=== PATIENT | male | born 1970 | race Hispanic/Latino ===

== ENCOUNTER 2016-11-16 10:44 | Observation (INO) | payer BC ==
--- NOTE | 2016-11-16 11:29 | ED PDOC ---
HPI: General Adult Time Seen by Provider: 11/16/16 11:04 Chief Complaint (Nursing): Upper Extremity Problem/Injury History Per: Patient Additional Complaint(s): Pt. states he woke up this morning with L sided neck pain. Reports that he's been having neck problems for some time now. Pt. states he put icy/hot over the area which resolved it so he went back to sleep. Pt. then states he woke up without any neck pain but did have b/l chest pain. Pt. states pain is worse with deep inspiration and is worse when he has arms out in front of him but resolve when they are over his head. Also states pain is worse when attempting to touch the chest. Denies SOB, palpitations, fever, trauma, N/V. Past Medical History Reviewed: Historical Data, Nursing Documentation, Vital Signs Vital Signs: Last Vital Signs Temp 99 F 11/16/16 13:00 Pulse 105 H 11/16/16 15:20 Resp 20 11/16/16 15:20 BP 136/79 11/16/16 14:00 Pulse Ox 98 11/16/16 15:20 - Medical History PMH: Anxiety - Surgical History Surgical History: No Surg Hx - Family History Family History: Denies: [place], CAD - Social History Drugs: Denies - Home Medications Home Medications: Ambulatory Orders Medication Instructions Recorded ALPRAZolam [Xanax] 0.25 mg PO DAILY PRN 11/16/16 Cholecalciferol (Vitamin D3) 2,000 unit PO DAILY 11/16/16 [Vitamin D3] Multivitamin [Multi-Vitamin Daily] 1 tab PO DAILY 11/16/16 Sertraline [Zoloft] 200 mg PO DAILY 11/16/16 - Allergies Allergies/Adverse Reactions: Allergies Allergy/AdvReac Type Severity Reaction Status Date / Time No Known Allergies Allergy Verified 11/16/16 10:51 Review of Systems ROS Statement: Except As Marked, All Systems Reviewed And Found Negative Cardiovascular: Positive for: Chest Pain Physical Exam - Reviewed Nursing Documentation Reviewed: Yes Vital Signs Reviewed: Yes - Physical Exam Appears: Positive for: Well, Non-toxic, No Acute Distress Head Exam: Positive for: ATRAUMATIC, NORMAL INSPECTION, NORMOCEPHALIC Skin: Positive for: Normal Color, Warm. Negative for: Rash Eye Exam: Positive for: EOMI, Normal appearance, PERRL ENT: Positive for: Normal ENT Inspection Neck: Positive for: Normal, Painless ROM Cardiovascular/Chest: Positive for: Regular Rate, Rhythm Respiratory: Positive for: CNT, Normal Breath Sounds Gastrointestinal/Abdominal: Positive for: Normal Exam, Bowel Sounds, Soft. Negative for: Tenderness Back: Positive for: Normal Inspection Extremity: Positive for: Normal ROM. Negative for: Calf Tenderness (b/l) Neurologic/Psych: Positive for: Alert, Oriented. Negative for: Aphasia, Facial Droop - Laboratory Results Result Diagrams: 11/16/16 11:50 11/16/16 11:50 - ECG O2 Sat by Pulse Oximetry: 98 - Radiology X-Ray: Interpreted by Me (CXR) X-Ray Interpretation: No Acute Disease - Progress ED Course And Treament: Labs ordered. CXR ordered. ASA 324mg PO chew ordered. On re-evaluation, pt. in no apparent distress. Reports no relief in pain. WBC 18.1. Denies fever, abdominal pain. Morphine 4mg IV, zofran 4mg IV given. Case d/w Dr. Hawley and decision was made to place pt. in 23 hr observation. case d/w Dr. Antony and arrangements made for 23 hr observation. Cardiology consult ordered. Disposition - Clinical Impression Clinical Impression: Chest pain, Leukocytosis - Patient ED Disposition Is Patient to be Admitted: Yes - Disposition Disposition Time: 13:20 Condition: FAIR Wells Criteria for PE - Wells Criteria for Pulmonary Embolism Clinical Signs and Symptoms of DVT: No P.E is #1 Diagnosis, or Equally Likely: No Heart Rate >100: No Immobilization at least 3 days;Surgery previous 4 weeks: No Previous, objectively diagnosed PE or DVT: No Hemoptysis: No Malignancy w/treatment within 6 months, or palliative: No Total Score: 0 JON Risk Score for UA/NSTEMI - JON Risk Score Age > 64: NO 3 or more CAD Risk Factors: NO Known CAD (Stenosis greater than 50%): NO Aspirin use in past 7 days: NO Severe Angina: NO EKG ST changes greater than 0.5mm: NO Positive Cardiac Marker: NO JON Score: 0 % risk at 14 days of: all cause mortality, new or recurrent [place], or severe recurrent ischemia requiring urgen revascularization: 5%
[2016-11-16 12:00] LABS: BASO # 0.1 K/uL (0.0-0.2); BASO % 0.4 % (0.0-2.0); EOS # 0.1 K/uL (0.0-0.7); EOS % 0.5 % (0.0-4.0); HEMOGLOBIN 15.1 g/dL (12.0-18.0); LYMPH # 1.3 K/uL (1.0-4.3); LYMPH % 7.4 % (20.0-40.0); MEAN CELL VOLUME 86.3 fl (80.0-94.0); MEAN CORPUSCULAR HEMOGLOBIN 29.1 pg (27.0-31.0); MEAN CORPUSCULAR HGB CONC 33.7 g/dL (33.0-37.0); MEAN PLATELET VOLUME 8.2 fl (7.2-11.7); MONO # 0.7 K/uL (0.0-0.8); NEUT # 15.9 K/uL (1.8-7.0); NEUT % 87.7 % (50.0-75.0); PLATELET COUNT 379 K/uL (130-400); RBC 5.21 Mil/uL (4.40-5.90); RED CELL DISTRIBUTION WIDTH 13.8 % (11.5-14.5); WHITE BLOOD COUNT 18.1 K/uL (4.8-10.8)
--- NOTE | 2016-11-16 12:09 | RAD ---
HISTORY: chest pain COMPARISON: 06/13/2014 FINDINGS: LUNGS: No active pulmonary disease. PLEURA: No significant pleural effusion identified, no pneumothorax apparent. CARDIOVASCULAR: Normal. OSSEOUS STRUCTURES: No significant abnormalities. VISUALIZED UPPER ABDOMEN: Normal. OTHER FINDINGS: None. IMPRESSION: No active disease.
[2016-11-16 12:25] LABS: ALB/GLOB RATIO 1.3 (1.0-2.1); ALBUMIN 4.5 g/dL (3.5-5.0); ALT/SGPT 76 U/L (21-72); AST/SGOT 46 U/L (17-59); BLOOD UREA NITROGEN 17 mg/dl (9-20); CALCIUM 8.9 mg/dL (8.4-10.2); GFR AFRICAN-AMERICAN > 60; GFR NON-AFRICAN AMERICAN > 60
[2016-11-16 12:29] LABS: BANDS 3 % (0-2); EOSINOPHIL 2 % (0-7); LYMPHOCYTE 6 % (20-50); MONOCYTE 4 % (0-10); NEUTROPHIL 85 % (42-75); PLATELET ESTIMATE NORMAL (NORMAL); TOTAL CELLS COUNTED 100
[2016-11-16 13:34] LABS: BARBITURATES, UR NEGATIVE (NEGATIVE); BENZODIAZEPINES, UR POSITIVE (NEGATIVE); OPIATES, UR NEGATIVE (NEGATIVE); PHENCYCLIDINE, UR NEGATIVE (NEGATIVE)
--- NOTE | 2016-11-16 15:24 | CARD ---
APPROVED REPORT EKG Measurement Heart [id number] <Conclusion> Normal sinus rhythm Minimal voltage criteria for LVH, may be normal variant Nonspecific T wave abnormality Prolonged QT Abnormal ECG
[2016-11-17 04:38] VITALS: TEMP 98
[2016-11-17 06:54] LABS: MEAN CELL VOLUME 87.9 fl (80.0-94.0); MEAN CORPUSCULAR HEMOGLOBIN 29.5 pg (27.0-31.0); MEAN CORPUSCULAR HGB CONC 33.6 g/dL (33.0-37.0); RBC 5.08 Mil/uL (4.40-5.90)
[2016-11-17 07:10] LABS: BLOOD UREA NITROGEN 17 mg/dl (9-20); CALCIUM 8.8 mg/dL (8.4-10.2); GFR AFRICAN-AMERICAN > 60; GFR NON-AFRICAN AMERICAN > 60; HDL CHOLESTEROL 38 MG/DL (30-70)
[2016-11-17 07:20] LABS: LDL CHOLESTEROL 149 mg/dL (0-129)
[2016-11-17 08:16] VITALS: RESP 18
--- NOTE | 2016-11-17 08:34 | CP.PCM.CON ---
History of Present Illness - History of Present Illness History of Present Illness: This 46-year-old man came to the emergency room after he developed chest pain which occurred following severe neck pain for which she sprayed his neck with a pain reliever. This was followed by intense discomfort in upper chest and left arm. The patient reports that there have not been any prior episodes of chest pain. By his own account he is extremely sedentary and has gained more than 50 pounds over the last 2-3 years and admits to eating salty food. He has been taking medications for anxiety and depression. He denies prior history of hypertension or diabetes. He used to be a smoker until 8-10 years back when he quit smoking. There is no family history of diabetes or vascular disease. The patient has never experienced any chest discomfort in the past related to physical activities. Physical examination shows a young obese man who is quite pain-free at this point. He is able to live virtually flat and breathe comfortably at Da breaths per minute. His heart rate was 74 bpm regular and his blood pressure was 160/80 mmHg. His jugular venous pressure was not elevated there was no edema over his lower extremities. His pedal pulses were well felt. There were no carotid bruits. His extremities were warm, his nailbeds were pink. There was no central or peripheral cyanosis. His apex was not palpable the first and second heart sounds are normal there was no murmur or gallop there were no rales. His abdomen was soft liver and spleen are not palpable his electrocardiogram in the emergency room showed sinus rhythm with left ventricular hypertrophy. His initial troponin on arrival in the emergency room was within normal limits a second set of troponin estimates are still awaited. His BUN/creatinine were 17 and 1 mg percent respectively his triglycerides were 180 mg percent and his LDL cholesterol was 149 mg percent with HDL cholesterol 38 mg percent. IMPRESSION: Atypical chest pain with no evidence of acute coronary syndrome. Chronic exogenous obesity with elevated blood pressure readings. Dyslipidemia. If the second set of troponin levels are also normal the patient may be allowed to return home to be followed by his primary care physician. I have instructed him to see his primary care physician to confirm that his blood pressure readings are consistently high and then initiate management of hypertension. A sedentary lifestyle needs to be addressed and the patient understands this. Past Patient History - Past Medical History & Family History Past Medical History?: Yes - Past Social History Drugs: Denies - CARDIAC Hx Cardiac Disorders: No - PULMONARY Hx Respiratory Disorders: No Hx Sleep Apnea: Yes - NEUROLOGICAL Hx Neurological Disorder: No - HEENT Hx HEENT Problems: No - RENAL Hx Chronic Kidney Disease: No - ENDOCRINE/METABOLIC Hx Endocrine Disorders: No - HEMATOLOGICAL/ONCOLOGICAL Hx Blood Disorders: No - INTEGUMENTARY Hx Dermatological Problems: No - MUSCULOSKELETAL/RHEUMATOLOGICAL Hx Falls: No - GENITOURINARY/GYNECOLOGICAL Hx Genitourinary Disorders: No - PSYCHIATRIC Hx Anxiety: Yes - SURGICAL HISTORY Hx Surgeries: No - ANESTHESIA Hx Anesthesia: No Hx Anesthesia Reactions: No Hx Malignant Hyperthermia: No Has any member of the family had a problem w/ anesthesia?: No Meds Allergies/Adverse Reactions: Allergies Allergy/AdvReac Type Severity Reaction Status Date / Time No Known Allergies Allergy Verified 11/16/16 10:51 - Medications Medications: Current Medications Alprazolam (Xanax) 0.25 mg PO DAILY PRN PRN Reason: Anxiety Stop: 11/23/16 15:11 Aspirin (Aspirin Chewable) 81 mg PO DAILY [facility] Atorvastatin Calcium (Lipitor) 10 mg PO DAILY [facility] Cholecalciferol (Vitamin D) 2,000 iu PO DAILY [facility] Ibuprofen (Motrin Tab) 400 mg PO Q8 PRN PRN Reason: pain Last Admin: 11/17/16 06:40 Dose: 400 mg Multivitamins/Minerals (Therapeutic-M Tab) 1 tab PO DAILY [facility] Sertraline HCl (Zoloft) 200 mg PO DAILY [facility] Last Admin: 11/16/16 16:30 Dose: 200 mg Results - Vital Signs Recent Vital Signs: Last Vital Signs Temp 98 F 11/17/16 08:00 Pulse 90 11/17/16 08:00 Resp 18 11/17/16 08:00 BP 155/97 H 11/17/16 08:00 Pulse Ox 95 11/17/16 08:00 - Labs Result Diagrams: 11/17/16 05:30 11/17/16 05:30 Labs: Laboratory Results - last 24 hr 11/17/16 11/17/16 05:30 05:30 WBC 13.0 H RBC 5.08 Hgb 15.0 Hct 44.7 MCV 87.9 MCH 29.5 MCHC 33.6 RDW 14.0 Plt Count 389 Sodium 141 Potassium 3.8 Chloride 100 Carbon Dioxide 30 Anion Gap 15 BUN 17 Creatinine 1.0 Est GFR ( Amer) > 60 Est GFR (Non-Af Amer) > 60 Random Glucose 106 Calcium 8.8 Triglycerides 183 H Cholesterol 234 H LDL Cholesterol Direct 149 H HDL Cholesterol 38
[2016-11-17] MEDS ORDERED: Multivitamin With Minerals Tab PO SCH (09:00)
[2016-11-17 12:25] VITALS: BP 132/83; PULSE 94; O2SAT 96
--- NOTE | 2016-11-17 12:27 | CP.PCM.HP ---
History of Present Illness - History of Present Illness History of Present Illness: CC: Chest pain. 46 y/o M, came to ER [facility], [place] to be evaluated for chest pain b/l, onset AM DOA, with no relief. Pt c/o of intermittent CP b/l, of moderate intensity 7:10, worsening when attempt to touch his chest and with deep inspiration. Also c/o of R neck pain today prior to new onset of chest pain, alleviated when applied Icy-hot pads. Aggravated factor: Position changes. Pt denied: Fever, chills, n/v/d, abdominal pain, SOB, CP, palpitations, trauma , Hx of DM or HTN. PMHx: Anxiety, Depression, Dyslipidemia, Sleep Apnea. Echo: Poor Echo window, LV is borderline dilated, Normal LV wall thickened, systolic funtion moderately impaired. CXR: No active disease. EKG: Normal sinus rhythm, minimal voltage criteria for LVH. Present on Admission - Present on Admission Any Indicators Present on Admission: No Review of Systems - Review of Systems Systems not reviewed;Unavailable: Other (negative.) - Constitutional Constitutional: Other (negative) - EENT Eyes: Other (negative) Ears: Other (negative) Nose/Mouth/Throat: Other (negative) - Cardiovascular Cardiovascular: Chest Pain - Respiratory Respiratory: Other (negative) - Gastrointestinal Gastrointestinal: Other (negative) - Genitourinary Genitourinary: Other (negative) - Reproductive: Male Reproductive:Male: Other (negative) - Musculoskeletal Musculoskeletal: Neck Pain - Integumentary Integumentary: Other (negative) - Neurological Neurological: Other (negative) - Psychiatric Psychiatric: Anxiety, Depression - Endocrine Endocrine: Other (negative) - Hematologic/Lymphatic Hematologic: Other (negative) Past Patient History - Past Medical History & Family History Past Medical History?: Yes Pertinent Family History: Unknown - Past Social History Smoking Status: Former Smoker Alcohol: None Drugs: Denies Home Situation {Lives}: With Family - CARDIAC Hx Cardiac Disorders: No - PULMONARY Hx Respiratory Disorders: Yes Hx Sleep Apnea: Yes - NEUROLOGICAL Hx Neurological Disorder: No - HEENT Hx HEENT Problems: No - RENAL Hx Chronic Kidney Disease: No - ENDOCRINE/METABOLIC Hx Endocrine Disorders: No - HEMATOLOGICAL/ONCOLOGICAL Hx Blood Disorders: No - INTEGUMENTARY Hx Dermatological Problems: No - MUSCULOSKELETAL/RHEUMATOLOGICAL Hx Musculoskeletal Disorders: No Hx Falls: No - GASTROINTESTINAL Hx Gastrointestinal Disorders: No - GENITOURINARY/GYNECOLOGICAL Hx Genitourinary Disorders: No - PSYCHIATRIC Hx Psychophysiologic Disorder: Yes Hx Anxiety: Yes Hx Depression: Yes - SURGICAL HISTORY Hx Surgeries: No - ANESTHESIA Hx Anesthesia: No Hx Anesthesia Reactions: No Hx Malignant Hyperthermia: No Has any member of the family had a problem w/ anesthesia?: No Meds Home Medications: Home Medication List Medication Instructions Recorded Confirmed Type Aspirin [Aspirin Chewable] 81 mg PO DAILY #30 11/17/16 Rx Atorvastatin [Lipitor] 10 mg PO DAILY #30 tab 11/17/16 Rx Allergies/Adverse Reactions: Allergies Allergy/AdvReac Type Severity Reaction Status Date / Time No Known Allergies Allergy Verified 11/16/16 10:51 Physical Exam - Constitutional Appears: No Acute Distress - Head Exam Head Exam: NORMAL INSPECTION - Eye Exam Eye Exam: PERRL - ENT Exam ENT Exam: Normal Oropharynx - Neck Exam Neck exam: Positive for: Normal Inspection - Respiratory Exam Respiratory Exam: NORMAL BREATHING PATTERN - Cardiovascular Exam Cardiovascular Exam: REGULAR RHYTHM - GI/Abdominal Exam GI & Abdominal Exam: Normal Bowel Sounds, Soft - Extremities Exam Extremities exam: Positive for: normal inspection - Back Exam Back exam: NORMAL INSPECTION - Neurological Exam Neurological exam: Alert, Oriented x3 Additional comments: No motor sensory deficit. - Psychiatric Exam Psychiatric exam: Anxious, Depressed - Skin Skin Exam: Warm Results - Vital Signs Recent Vital Signs: Last Vital Signs Temp 98 F 11/17/16 12:00 Pulse 94 H 11/17/16 12:00 Resp 18 11/17/16 12:00 BP 132/83 11/17/16 12:00 Pulse Ox 96 11/17/16 12:00 cristiano Mccollum - Labs Result Diagrams: 11/17/16 05:30 11/17/16 05:30 Labs: Laboratory Results - last 24 hr 11/17/16 11/17/16 05:30 05:30 WBC 13.0 H RBC 5.08 Hgb 15.0 Hct 44.7 MCV 87.9 MCH 29.5 MCHC 33.6 RDW 14.0 Plt Count 389 Sodium 141 Potassium 3.8 Chloride 100 Carbon Dioxide 30 Anion Gap 15 BUN 17 Creatinine 1.0 Est GFR ( Amer) > 60 Est GFR (Non-Af Amer) > 60 Random Glucose 106 Calcium 8.8 Troponin I 0.0150 Triglycerides 183 H Cholesterol 234 H LDL Cholesterol Direct 149 H HDL Cholesterol 38 reviewed J.P. - EKG Data EKG comments: reviewed J.P. - Impressions Impression: Echo Reviewed J.P. - Imaging and Cardiology Chest x-ray Status: Report reviewed by me (Veda) Assessment & Plan (1) Atypical chest pain Status: Acute Priority: High (2) Elevated BP without diagnosis of hypertension Status: Acute Priority: High (3) Dyslipidemia Status: Chronic Priority: High (4) Anxiety Status: Chronic Priority: Medium (5) Depression Status: Chronic Priority: Medium (6) Leukocytosis Status: Acute - Assessment and Plan (Free Text) Plan: Pt was seen and clear by transformation consultant for DC home with impression of Chest pain atypical, non evidence of acute coronary syndrome. Pt improved and is stable to be discharged, see induction medication sheet, f/u with PMD in a week and with transformation consultant in 2 week. - Date & Time Date: 11/17/16
[2016-11-17] MEDS ORDERED: Pneumococcal 23-Valent Vaccine IM ONE (14:30)
--- NOTE | 2016-11-17 17:36 | CARD ---
APPROVED REPORT EXAM: Two-dimensional and M-mode echocardiogram with Doppler and color Doppler. Other Information Quality : GoodRhythm : NSR Technically limited study due to body habitus. INDICATION Chest Pain 2D DIMENSIONS IVSd1.24 (0.7-1.1cm)LVDd5.49 (3.9-5.9cm) LVOT Diameter2.19 (1.8-2.4cm)PWd1.25 (0.7-1.1cm) IVSs1.70 (0.8-1.2cm)LVDs4.75 (2.5-4.0cm) FS (%) 13.5 %PWs1.35 (0.8-1.2cm) LVEF (%)40.0 (>50%) M-Mode DIMENSIONS Left Atrium (MM)4.05 (2.5-4.0cm)IVSd1.29 (0.7-1.1cm) Aortic Root4.09 (2.2-3.7cm)LVDd6.50 (4.0-5.6cm) Aortic Cusp Exc.2.13 (1.5-2.0cm)PWd1.36 (0.7-1.1cm) IVSs1.75 cmFS (%) 22 % LVDs5.10 (2.0-3.8cm)PWs1.43 cm Mitral Valve E/A ratio0.0 TDI E/Lateral E'0.0E/Medial E'0.0 Pulmonary Valve PV Peak Ugtarzgb91.6cm/s Tricuspid Valve TR Peak [id number] [id number] Peak Gr.13mmHg [id number] LEFT VENTRICLE The Left Ventricle is borderline dilated. There is normal left ventricular wall thickness. The systolic function is moderately impaired. Apical hypokinesis The left ventricular diastolic function is normal. RIGHT VENTRICLE The right ventricle is normal size. There is normal right ventricular wall thickness. The right ventricular systolic function is normal. ATRIA The left atrium is borderline dilated. The right atrium size is normal. AORTIC VALVE The aortic valve is not well visualized. There is trace aortic regurgitation. There is no aortic valvular stenosis. MITRAL VALVE The mitral valve is mildly thickened. There is no mitral valve stenosis. There is no mitral valve regurgitation noted. TRICUSPID VALVE The tricuspid valve is normal in structure and function. There is no tricuspid valve regurgitation noted. PULMONIC VALVE The pulmonary valve is normal in structure and function. There is no pulmonic valvular regurgitation. GREAT VESSELS The aortic root is normal in size. The IVC is normal in size and collapses >50% with inspiration. PERICARDIAL EFFUSION There is a trace loculated anterior pericardial effusion. <Conclusion> Poor Echo window The Left Ventricle is borderline dilated. There is normal left ventricular wall thickness. The systolic function is moderately impaired. Apical hypokinesis
== END 2016-11-17 14:45 | disposition home or self-care (01) ==
LOC: H.ER 10:44 → H.ERHOLD 13:30 → H.TEL 14:59
PROVIDERS: ADMIT Internal Medicine Pulmonary Disease; ATTEND Internal Medicine Pulmonary Disease
DX: R07.89 Other chest pain (principal); D72.829 Elevated white blood cell count, unspecified; E66.09 Other obesity due to excess calories; Z68.29 Body mass index [BMI] 29.0-29.9, adult; E78.5 Hyperlipidemia, unspecified; F41.9 Anxiety disorder, unspecified; I10 Essential (primary) hypertension; G47.30 Sleep apnea, unspecified; Z23 Encounter for immunization; F32.9 Major depressive disorder, single episode, unspecified; Z87.891 Personal history of nicotine dependence
CPT/HCPCS: 36415; 71010; 80048; 80053; 80061; 84484; 85025; 85027; 90732; 93005; 93306; 96374; 96375; 99285; G0009; G0378; G0480; J2270; J2405